=== PATIENT | female | born 1980 | race Hispanic/Latino ===

== ENCOUNTER 2019-05-29 07:58 | Outpatient (CLI) | payer BC ==
--- NOTE | 2019-05-29 08:20 | ULT ---
ULTRASOUND ABDOMEN: HISTORY: Abdominal pain FINDINGS: There is increased echogenicity of the liver consistent with fatty infiltration without focal mass or intrahepatic duct biliary ductal dilatation. The spleen, kidneys and visualized portions of the pancreas, aorta and IVC appear normal. The common duct measures 8mm in diameter. No free fluid is see n. IMPRESSION: Fatty liver. Status post cholecystectomy.
== END 2019-05-29 07:59 | disposition home or self-care (01) ==
LOC: BICULT 07:58
PROVIDERS: ATTEND Family Medicine
DX: R10.11 Right upper quadrant pain (principal); K76.0 Fatty (change of) liver, not elsewhere classified; Z90.49 Acquired absence of other specified parts of digestive tract
CPT/HCPCS: 93975